=== PATIENT | female | born 1935 | race Caucasian/White ===

== ENCOUNTER 2018-04-25 18:20 | Inpatient (IN) | payer OTHER, BC ==
[2018-04-22 21:45] VITALS: BP 176/88
[~2018-04-25] VITALS: Ht 165.1 cm; Wt 58.1 kg
[2018-04-25 18:22] VITALS: BP 172/89
[2018-04-25 18:56] LABS: URINE BILIRUBIN NEGATIVE (Negative); URINE BLOOD 1+ (Negative); URINE CLARITY CLEAR; URINE COLOR YELLOW; URINE GLUCOSE-RANDOM* NEGATIVE (Negative); URINE KETONES NEGATIVE (Negative); URINE LEUKOCYTES-REFLEX NEGATIVE (Negative); URINE NITRITE-REFLEX NEGATIVE (Negative); URINE PROTEIN (DIPSTICK) NEGATIVE (Negative); URINE SPECIFIC GRAVITY 1.025 (1.005-1.035); URINE UROBILINOGEN 0.2 E.U./dl (0.2-1.0)
[2018-04-25 19:12] LABS: BACTERIA-REFLEX None Seen /HPF (None Seen); CRYSTALS None Seen /LPF (None Seen); HYALINE CASTS 0-3 Few /LPF (None Seen); MUCUS >6 Heavy strn/LPF (None Seen); SQUAMOUS 0-3 Few /LPF (0-3); URINE RBC 0-2 Rare /HPF (0-2); URINE WBC-REFLEX 0-5 Rare /HPF (0-5)
[2018-04-25 19:14] LABS: AMP/METHAMP Negative (Negative); BARBITURATES Negative (Negative); BENZODIAZEPINES Negative (Negative); COCAINE Negative (Negative); METHADONE Negative (Negative); OPIATES Negative (Negative); PCP Negative (Negative)
[2018-04-25] MEDS ORDERED: TRAZODONE HCL50 MG PO (19:49)
[2018-04-25] MEDS ORDERED: CELEXA20 MG PO (19:49)
[2018-04-25 19:51] LABS: HEMATOCRIT 35.5 % (37.0-47.0); HEMOGLOBIN 12.2 gm/dL (12.0-15.0); MCH 32.4 pg (26.0-34.0); MCHC 34.3 g/dL (28.0-37.0); MCV 94.5 fL (80.0-100.0); RBC 3.76 mil/uL (4.20-5.00); RDW 13.1 % (10.5-14.5)
[2018-04-25 19:59] LABS: CREATININE 0.7 mg/dL (0.6-1.0); POTASSIUM 3.3 mmol/L (3.5-5.1)
[2018-04-25] MEDS ORDERED: NAMENDA 10 MG T10 MG PO (19:59)
[2018-04-25] MEDS ORDERED: PROLIA60 MG/1 ML SUBQ (20:00)
[2018-04-25] MEDS ORDERED: ARICEPT 5 MG TAB5 MG PO (20:01)
[2018-04-25] MEDS ORDERED: COLACE100 MG PO (20:01)
[2018-04-25] MEDS ORDERED: IBUPROFEN 200200 M1 PO (20:02)
[2018-04-25 21:23] VITALS: BP 172/77
[2018-04-26] VITALS (7 sets, daily range): BP systolic 156–179; BP diastolic 88–100
[2018-04-26] MEDS ORDERED: TRAZODONE HCL50 MG (00:04)
--- NOTE | 2018-04-26 00:51 | NUR ---
82 YEAR OLD FEMALE ADMITTED FROM [facility] WITH REPORTED INCREASING DEPRESSIVE SYMPTOMS,POOR SLEEP,DECREASED APPETITE AND RECENT SUICIDAL COMMENTS AND GESTURES. PER DOCUMENTATION SENT FROM [place] PT HAD AN INCIDENT ON 04/22 PM WHERE SHE HAD A PLASTIC FORK TO HER FACE AND WAS SAYING "I AM GOING TO END IT ALL" AT THIS TIME DID INLICT SOME SUPERFICIAL SCRATCHES TO RIGHT CHEEK THAT ARE NOTED TO BE CLEAN AND DRY WITHOUT REDNESS OR SWELLING OBSERVED DURING ASSESSMENT. SOME FAINT YELLOWISH BRUISING NOTED TO RIGHT CHEEK/ORBITAL AREA OBSERVED. PT WAS ALSO REPORTED TO HAVE VERBALIZED TO HER DAUGHTER THAT SHE HAD A PLAN TO BREAK A GLASS AND USE IT TO CUT HER THROAT-THIS COMMENT WAS MADE 04/24 PM PER DOCUMENTATION AND DID NOT ACT UPON THIS THREAT. INITALLY UPON ARRIVING TO UNIT WAS SCREAMING,RESSITVE WITH TRANSFER FROM CART TO BED AND APPEARS SUSPICIOUS OF STAFF STATING "DO YOU HAVE A NEEDLE,ARE YOU GOING TO PUT ME TO SLEEP-GO AHEAD AND DO IT" AFTER INITAL AGITATION WITH TRANSFER TO BED REFUSED TO ANSWER QUESTIONS AND TURNED HEAD AWAY FROM THIS RN EYES TIGHTLY CLOSED-. PLACED IN ROOM NEXT TO NURSES STATION FOR -CALL TOLENTINO AND WATER PROVIDED-DID TRANSFER TO BSC WITH SBA X1
--- NOTE | 2018-04-26 10:47 | NUR ---
ASSUMED PT CARE AT 0700 REPORT RECEIVED FROM NURSE. PT IS AOX4 VS TAKEN. SBP 179. APRESOLINE ORDERED AND GIVEN. MORNINIG MEDICINE GIVEN. PT COMPLAINS OF STRAINING WHILE DEFACATING AND CONSTIPATION. BISACODYL ORDERED AND GIVEN BY THIS NURSE. PT IS UP AD LELIA AMBULATES IN HALLWAY AND ATE BREAKFAST. NO AGGRESSIVE BEHAVIOR NOTED . JUST IMPATIENCE AND MOOD SWING FROM HAPPINESS TO SADNESS. PICTURE OF RIGHT CHEECK BONE ABRAISON TAKEN AND PLACED IN CHART. SEE CHART. PT IN NOW RESTING IN BED. WILL CONTINUE TO MONITOR
--- NOTE | 2018-04-26 16:13 | NUR ---
pt becomes anxious towards the evening. pt took a shower this evening. ate all meals. constipated. nurse brought that concern to hospitalist VP STRATEGIC PLANNING who did a CONCHIS and KUB. result normal. will continue with PRN suad softeners
--- NOTE | 2018-04-26 16:48 | EKG ---
[address] [place] [address] ELECTROCARDIOGRAM REPORT Name: TYLER HOOKER Room #: [facility] ADM IN M.R.#: [id number] ������������������ Admission: 04/25/18 ������������������ Attend Phys: Joaquin Modi DO Discharge: ������������������ Date of : 39 Report #: [id number] ����������������������������������������������������������������� [id number] THIS REPORT FOR: //name// [facility] Test Date: 2018-04-26 Test Time: 08:55:38 Pat Name: TYLER HOOKER Department: Room: [facility] Gender: F Qa Manager: CHARANJIT : 1935 Requested By: Joaquin Modi Order Number: [id number] MD: Min Snyder Measurements Intervals [place] Rate: 72 P: 76 MN: 146 QRS: -10 QRSD: 106 T: 38 QT: 391 QTc: 428 Interpretive Statements Sinus rhythm RSR' in V1 or V2, right VCD or RVH No previous ECG available for comparison Electronically Signed On 04-26-2018 16:48:11 TRAFFIC CHECKER by Min Snyder [email or web address] ��������������������������������������������� <ELECTRONICALLY SIGNED> ���������������������������������������� By: Min Snyder MD ��������������������������������������������� 04/26/18 1648 4 Min Snyder MD /ANDI
--- NOTE | 2018-04-26 20:30 | NUR ---
ASSUMED CARE @19:15. IN DAY ROOM STANDING AND AMBULATING. AMBULAING IN HALLWAY SAYING THAT SHE IS LOOKIN FOR THE OUTSIDE. REDIRECTED. DENIES SI AND FL AT THIS TIME. A&O X 2.
--- NOTE | 2018-04-26 21:49 | H ---
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 HISTORY OF PRESENT ILLNESS: This is an 82-year-old female, , who has been residing at the [facility] for 3 weeks. Previously, she lived at home with her . Her has advancing pulmonary fibrosis and need to be hospitalized, is no longer able to be cared for her. I met with the patient this morning on the unit, she was a grossly poor historian. She was guarded. She was paranoid. She was unable to give me a reliable history. I spoke with her reported DPOA and daughter, Reanna Conklin at [phone]. She reports that the patient has had dementia for 16-year history. 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 Medica History: The patient otherwise has a significant medical history. Surgical Hx denied Seizure History: denied Family history is noted to be an older brother, older sister with Alzheimer's related dementia, 1 . Social History:The patient traveled to [place] about 10 years ago, otherwise no foreign travel. She has 4 children. She has developed yazidism. Educational History She went to college later in life. [facility] [address] [place] [address] HISTORY AND PHYSICAL Name: TYLER HOOKER Room #: 520B-B ADM IN M.R.#: [id number] Admission: 04/25/18 ������������������ Attend Phys: Joaquin Modi, Discharge: ������������������ Date of : 39 Report #: [id number] Home Medications: Significant information from the Memory Care Facility, her regimen there was acetaminophen 1000 mg twice a day, citalopram 20 mg daily, diclofenac gel, donepezil 23 mg daily, amantadine 23 mg extended release, miconazole 2% cream, trazodone 50 mg at bedtime, B12 1000 mcg oral daily and several PRNs. Interestingly, one of her nasal medications was intranasal ipratropium. The patient was noted at the nursing facility as having made a suicidal ideation about a week to 10 days ago. She also around that time right before or right after had a brief statement at her Medical Center, it sounds like for delirium. The instance that brought her here on the was she stated she was going to break glass and cut her neck with it. She has been on private duty one-to-one supervision due to comments made over the weekend. She was started on trazodone 25 mg p.o. at bedtime. On 04/22/2018, Tyler tried to poke her face on the right side, she stated "I want to end it." So nonetheless, we have a good 1-week history of suicidal gesture. Workup from the ER is as follows: H and H 12.2 and 35.5, white count 5.0, platelet count 237, potassium 3.3, carbon dioxide 33, anion gap is 6. Acetaminophen level is less than 2. Serum alcohol less than 10. Urinalysis negative except 1+ blood, 0-3 hyaline casts, greater than 6 mucus. Other laboratories were not done. No imaging done. Vital signs today: Temperature 36.7, heart rate 77, respirations 17, BP 179/100. Physical exam performed by hospitalists, so I will defer to them. Reliable psychiatric review of systems is not possible given the degree of the patient's confusion and dementia. MEDICATIONS IN THE HOSPITAL: Trazodone 50 mg at bedtime; Risperdal 0.25 mg b.i.d.; Trileptal 150 mg twice a day; docusate 100 mg p.o. b.i.d.; hydralazine 10 mg q.6 p.r.n. for systolic BP greater than 170; one rectal suppository, the nurse reported that she has a small stenotic rectum, I have asked the hospitalist to examine further; donepezil discontinued at this time, vitamin B12 oral continue 1000 mcg daily, Tylenol 1000 mg b.i.d. continued. MENTAL STATUS EXAM: Well-developed, disheveled, ill appearing female appearing at least stated age. Attention limited. Concentration impaired. Speech normal rate with normal tone. Thought process linear and goal directed. Thought content is not being harmed. Some psychomotor agitation. No psychomotor retardation. Denied auditory, visual, or tactile hallucination. Denied suicidal intent and plan. Denied hopelessness and helplessness. Denied homicidal intent and plan. Memory noted to be impaired. Insight limited. Judgment impaired. Fund of knowledge well below average. ASSESSMENT: An 82-year-old female admitted with dementia with [address] [address] HISTORY AND PHYSICAL Name: TYLER HOOKER Room #: 520B-B ADM IN M.R.#: [id number] Admission: 04/25/18 ������������������ Attend Phys: Joaquin Modi DO Discharge: ������������������ Date of : 39 Report #: [id number] behavioral disturbance picture. PLAN: Evaluate, stabilize, obtain collateral. Her citalopram has been stopped. We will start her on Risperdal 0.25 mg b.i.d. for delirium and ____ 150 mg twice a day for mood stabilization. I told the daughter we will plan a family meeting either late this week or early next week. ��������������������������������������������� <ELECTRONICALLY SIGNED> ���������������������������������������� By: Joaquin Modi DO ��������������������������������������������� 04/26/18 2149 1400 [id number] Joaquin Modi DO /nt
--- NOTE | 2018-04-27 03:20 | NUR ---
EARLIER IN THE SHIFT, STAFF ASKED THIS CONTROL SYSTEMS DESIGNER TO CHECK OUT THE PATIENT, WHEN SHE HAD HEARD A NOISE. THIS CONTROL SYSTEMS DESIGNER WALKED INTO THE PATIENT'S ROOM AND FOUND THE PATIENT ON THE FLOOR SITTING ON HER BOTTOM. THE PATIENT HAD STATED THAT SHE WANTED TO PEE. VITAL SIGNS WERE TAKEN AND THE PATIENT WAS ASSISTED BACK TO THE BED. THE NURSE PRACTIONER WILL BE NOTIFIED THIS AM, WELL THE PATIENT'S FAMILY. THE ZINC PLATING MACHINE OPERATOR WAS NOTIFIED.
--- NOTE | 2018-04-27 06:32 | NUR ---
IN BED ALL NOC AFTER RECOVERING FROM FALL. NO INJURIES NOTED. LEFT MSG ON POLICE SERVICE TECHNICIAN ANSWERING MACHINE. DAUGHTER BRENDA CALLED AND ADVISED OF NON-INJURY FALL. SLEPT 5 HOURS.
[2018-04-27 07:20] VITALS: BP 157/93
--- NOTE | 2018-04-27 11:22 | NUR ---
ASSUMED PATIENT CARE AT 0700. PATIENT UP IN LARGE GROUP ROOM AT TABLE. ATE SMALL AMOUNT OF BREAKFAST. DENIES S.I. DENIES PAIN. HAS NOT HAD ANY FURTHER INCIDENTS OF FALLS, STAND-BY ASSIST WITH GAIT BELT. BLOOD PRESSURE ELEVATED, 157/93. CONTINUE TO MONITOR.
[2018-04-27 12:09] VITALS: BP 157/93
--- NOTE | 2018-04-27 13:15 | NUR ---
PATIENT REFUSED LUNCH; BECAME VERY ANXIOUS, REFUSED TO SIT DOWN AT TABLE, CONTINUED TO TRY TO WALK WITHOUT WALKER OR ASSISTANCE. THIS NURSE AND AMMUNITION SPECIALIST ASSISTED PATIENT TO HER ROOM, ONE EACH SIDE OF PATIENT, HOLDING PATIENT'S ARMS TO HOLD HER UP. PATIENT KEPT TRYING TO LEAN OVER, IF TRYING TO FALL ON THE FLOOR. GAIT BELT APPLIED TO PATIENT, SAFELY ASSISTED PATIENT TO HER BED. LAID DOWN AND NAPPED FOR ABOUT AN HOUR; NOW UP IN LARGE GROUP WITH ASSIST OF ONE, PER ASSIST OF AMMUNITION SPECIALIST. CONTINUE TO MONITOR.
--- NOTE | 2018-04-27 14:43 | NUR ---
Assess due to notification of low bright score. Admit with SI. Hx advanced alzheimers, depression. Had not been eating few days prior to admit but starting to eat while here. Unknown wt hx. BMI is 21.3-appropriate. On B12 supplementation. low nutrition risk
--- NOTE | 2018-04-27 18:19 | NUR ---
PATIENT UP MOST OF DAY; IMPULSIVE; NOTED PREVIOUSLY, SUDDENLY STANDS UP AND TRIES TO WALK WITHOUT ASSISTANCE. AT 1815, PATIENT GOT UP FROM [facility] IN LARGE GROUP ROOM, REFUSED TO LET NURSE HELP HER WALK WITH WALKER. BECAME TEARFUL AND ANGRY, STATED THAT SHE WANTED TO SEE HER SISTERS. ALSO, SHE IS TIRED OF NOT SEEING ANYONE. THEN BEGAN WALKING AT AN ALMOST RUNNING PACE. NURSE CALLED FOR ASSISTANCE. DIONICIO TONY, WAS ABLE TO WALK PATIENT TO HER BED BY HOLDING BOTH HANDS. PATIENT CURRENTLY LYING QUIETLY IN BED WITH EYES CLOSED.
--- NOTE | 2018-04-27 21:59 | NUR ---
ASSUMED CARE @ 19:15. SITTING IN DAY ROOM. HAS WALKER TODAY TO USE FOR SAFETY. IMPULSIVE, STANDING UP QUICKLY AND RESISTING ASSISTANCE FROM STAFF. FIGHTING GAIT BELT, WALKER AND X2 TO X3 ASSIST. TRIES TO AMBULATE @ A RUNNING PACE IMPULSIVELY. MEDICATIONS GIVEN WITH PUDDING AND TO HELP WITH SWALLOWING MEDICATION.
--- NOTE | 2018-04-28 06:29 | NUR ---
IN BED ALL NIGHT ONCE ASLEEP, STAYED ASLEEP. SLEPT 6 HOURS.
[2018-04-28 07:45] VITALS: BP 136/80
--- NOTE | 2018-04-28 12:58 | NUR ---
ASSUMED CARE AT 0715 THIS MORNING. PT. CONTINUES TO BE VERY CONFUSED. SHE IS UP WALKING AROUND, OFTEN WITHOUT HER WALKER. SHE IS NOTED TO GET TIRED AND SIT DOWN WHERE SHE STANDS (IN HER ROOM, THE [place], WHEREVER SHE IS). SHE NEEDS CONTSTANT REMINDER TO TAKE HER WALKER WITH HER WHEN SHE IS AMBULATING. SHE IS TEARFUL AT TIMES LOOKING FOR HER FAMILY. SHE WILL ONLY REST FOR VERY SHORT PERIODS OF TIME IN HER ROOM THEN SHE WANTS TO GET UP AND WALK AGAIN. STAFF GIVES HER FLUIDS OFTEN, BUT UNABLE TO GET PT. TO CONSUME MUCH. WAS TAKEN TO THE BATHROOM ABOUT EVERY 2 OR 3 HOURS TODAY. BED WAS CHANGED. PT. WANTED TO PUT ON HER OWN CLOTHES, BUT THERE ARE NONE HERE FOR HER. SHE DOES ATTEMPT TO FED HERSELF BUT NEEDS MUCH HELP FROM STAFF TO EAT. SHE WILL TAKE HER PILLS BUT TRIES TO CHEW THEM. EVEN WHEN PILLS ARE GIVEN IN PUDDING SHE WILL SUCK OFF THE PUDDING AND THEN AGAIN TRY TO CHEW THE PILLS. SHE IS NOTED TO BE DROOLING QUITE A BIT TODAY. STAFF SUPPLIES HER WITH KLEENIX FOR THIS.
[2018-04-28 13:09] VITALS: BP 136/80
--- NOTE | 2018-04-28 15:45 | NUR ---
ROSAMARIA met with Reanna pt daughter (DPOA) to discuss her medication, and discharge plan. Dr. Modi stated that he d/c three prescriptions, and add Halidol. Dr. Modi stated that there will need to be another meeting to discuss the diagnosis with the whole family. Dr. modi stated that pt is having psychosis, and delirium and she will not be ready for discharge until mid next week. ROSAMARIA will follow-up with pt upon discharge.
[2018-04-28 18:28] LABS: URINE BILIRUBIN NEGATIVE (Negative); URINE BLOOD NEGATIVE (Negative); URINE CLARITY CLEAR; URINE COLOR YELLOW; URINE GLUCOSE-RANDOM* NEGATIVE (Negative); URINE KETONES NEGATIVE (Negative); URINE LEUKOCYTES-REFLEX NEGATIVE (Negative); URINE NITRITE-REFLEX NEGATIVE (Negative); URINE PROTEIN (DIPSTICK) NEGATIVE (Negative); URINE SPECIFIC GRAVITY >= 1.030 (1.005-1.035); URINE UROBILINOGEN 0.2 E.U./dl (0.2-1.0)
[2018-04-28 19:26] VITALS: BP 147/77
[2018-04-29 01:06] VITALS: BP 147/77
--- NOTE | 2018-04-29 04:03 | NUR ---
PT CONTINUES TO BE RESTLESS AND OCCASIONALLY COMBATIVE. RESPONDS TO GENTLE REASSURANCE THAT SHE IS SAFE AND NO ONE WILL HURT HER. PERIODICALLY ATTEMPTS TO GET UP ON HER OWN. SPENT TIME IN DAY AREA WITH STAFF. HAS LITTLE UNDERSTANDING OF CURRENT CIRCUMSTANCES. OCCASIONALLY MAKES STATMENTS LIKE"WE'RE ALL GOING TO ". UP AND DOWN X 2 DURING THE NIGHT. USES BSC.
[2018-04-29 06:14] LABS: CREATININE 0.6 mg/dL (0.6-1.0); POTASSIUM 3.1 mmol/L (3.5-5.1)
[2018-04-29 07:15] VITALS: BP 158/93
--- NOTE | 2018-04-29 09:02 | NUR ---
ASSUMED PATIENT CARE AT 0700. PATIENT UP IN D.R. AT THAT TIME, QUIET AT THAT TIME. HOWEVER, A FEW MINUTES LATER, PATIENT BECAME ANXIOUS, EVIDENCED BY GETTING UP FROM TABLE AND BEGINNING TO WALK BY HERSELF. NURSING STAFF INTERCEDED AND ASSISTED PATIENT TO ROOM TO USE BATHROOM. BOBBIN STRIPPER REPORTED THAT PATIENT STRAINED TO HAVE A HARD, FORMED B.M. GIVEN PRUNE JUICE FOR BREAKFAST. WILL REQUEST LAXATIVE ORDER WHEN DR. REHMAN ARRIVES. CONTINUE TO MONITOR.
[2018-04-29 11:56] LABS: MAGNESIUM 1.7 mg/dL (1.8-2.4)
[2018-04-29 18:29] VITALS: BP 158/93
[2018-04-29 20:36] VITALS: BP 154/77
--- NOTE | 2018-04-29 22:57 | NUR ---
REFUSED 2100 MEDS. IN DAY ROOM, SITTING AT TABLE IN A CHAIR. ANXIETY PROMTS PATIENT TO STAND AND WALK, AIDE REQUESTS PT SIT AND SHE DOES SO RESISTANTLY. DENIES HALLUCINAIONS, SI AND HI. ACCEPTED MEDS WITH APPLE JUICE AND ENCOURAGEMENT. AMBULATED TO BEDROOM WITH X1 ASSIST AND GAIT BELT. LYING IN BED, EYES CLOSED, RESPIRATIONS EVEN AND UNLABORED.
[2018-04-29 23:00] VITALS: BP 154/77
--- NOTE | 2018-04-30 06:29 | NUR ---
SLEPT IN BED 8 HOURS.
--- NOTE | 2018-04-30 10:17 | NUR ---
ASSUMED PATIENT CARE AT 0700. AT ABOUT 0730, PATIENT UP IN BEDROOM WITH AQUARIUM SPECIALIST; HAD LARGE BOWEL MOVEMENT, PARTIALLY INCONTINENT. ATE ABOUT 25% OF BREAKFAST, DRANK ALL OF O.J. IS CURRENTLY IN BED, NAPPING. CONTINUE TO MONITOR.
[2018-04-30 14:57] VITALS: BP 142/73
--- NOTE | 2018-04-30 17:15 | NUR ---
ASSUMED CARE AT 0715 THIS MORNING. PT. IN BED. UP FOR BREAKFAST THEM RETURNED TO BED AND RESTED UNTIL ABOUT 0900. SHE HAS BEEN UP MOST OF THE DAY SINCE THAT TIME, OFTEN WALKING THE HALLS. STAFF WITH PATIENT SHE AMBULATES. SHE WAS NOT AGITATED TODAY AND WAS QUIETER. SHE ATE AT LEAST 1/2 OF HER MEALS. SHE HAD A BM TODAY NEEDED CLEANED UP BY STAFF. SHE CONTINUES TO UTILIZE A WALKER PART OF THE TIME SHE AMBULATES. SHE HAS NOT BEEN UPSET ABOUT USING THIS. HAS TAKEN HER MEDS WITHOUT PROBLEMS TODAY.
--- NOTE | 2018-04-30 17:56 | NUR ---
PATIENT CONTINUES TO BECOME AGITATED AND IMPULSIVE. ALSO DOES NOT SIT STILL FOR MORE THAN SHORT PERIODS OF TIME. ATE OVER 50% OF LUNCH AND DINNER. NOW SITTING ON SOFA, SPEAKING TO RNRICKEY.
[2018-04-30 20:04] VITALS: BP 153/88
[2018-05-01 01:10] VITALS: BP 153/88
--- NOTE | 2018-05-01 04:09 | NUR ---
PT MUCH MORE RELAXED THIS PM. OUT IN DAY AREA EARLY IN SHIFT. REQUESTED TO GO TO BED. MORE ABLE TO EXPRESS NEEDS TO STAFF. SLEPT INTERMITTANTLY. UP TO BS COMMODE X2, BUT ALSO INCONTINANT X1. LINEN CHANGED. REMAINS WEAK AND REQUIRES ASSIST WITH TOILETING AND AMBULATION WITH WALKER. TOOK HS MEDS W/O PROBLEM.
[2018-05-01 07:38] VITALS: BP 176/92
--- NOTE | 2018-05-01 08:45 | NUR ---
CLIENT UP AT THIS TIME USING BSC, BRIEF IS DRY. PT VOIDED, BUT NO BM. CLIENT UP WALKING WITH WALKER, NEEDS ENFORECMENT TO USE WALKER. DIDN'T WANT NURSE TO LISTEN TO ABD. PINCHING NURSES HANDS WITH STETHESCOPE. ABLE TO AG EQUIPMENT FIELD SERVICE TECHNICIAN FINGER FOODS.
[2018-05-01 11:08] VITALS: BP 176/92
--- NOTE | 2018-05-01 12:00 | NUR ---
CLIENT UP AT TIMES STATING SHE HAS TO GO SOMEWHERE, ASK WHERE, CLIENT UNABLE TO SAY. WALKS WITH WALKER AND STAND-BY ASSIST. GAIT STEADY, AFRAID OF FALLING.
--- NOTE | 2018-05-01 17:00 | NUR ---
FAMILY VISITING, HELPING CLIENT WITH DINNER. CLIENT NOT ABLE TO ATTEND GROUP AND STAY FOCUSED, GETS UP FREQUENTLY WHEN SITTING IN DINNING ROOM.
[2018-05-02 00:50] VITALS: BP 149/89
[2018-05-02 01:10] VITALS: BP 149/89
--- NOTE | 2018-05-02 04:26 | NUR ---
PT OUT IN DAY AREA EARLY IN SHIFT. EVENING SNACK OF YOGURT. UP WALKING WITH ASSIST. ENCOURAGED TO USE WALKER, BUT WALKING ON HER OWN. ESCORTED TO BED. TOOK HS MEDS W/O INCIDENT. SLEPT INTERMITTANTLY. UP TO BSC X2 DURING THE NIGHT. NO INCONTINENCE NOTED. NO BM.
[2018-05-02 07:30] VITALS: BP 123/76
[2018-05-02 08:00] VITALS: BP 149/89
--- NOTE | 2018-05-02 11:04 | NUR ---
assumed pt care report received from nurse pt is aox3 no complaint of pain at this time. pt is sitting in the activity room. ate breakfast with help. walked in hallway with walker and assistance from staff. pt seems to be sedated. slouched posture, slow movement noticed. pt took shower this am. but pt is well behaving at this time. pt daughter Reanna came and visit today at 1100. pt is now in room communicating with daughter. will continue to monitor
--- NOTE | 2018-05-02 18:20 | NUR ---
pt spent a day free of falls. pt assisted to walk with walker. pt is now resting in bed.
[2018-05-02 20:03] VITALS: BP 152/98
--- NOTE | 2018-05-02 23:23 | NUR ---
Recieved report and assumed care @19:15. [id number] ambulated to bedroom and lay down in bed. fall mat on the floor and bed alarm set. 2100 medications provided in applesauce. Resumed sleep, alarm on and fall mat beside bed.
--- NOTE | 2018-05-03 06:48 | NUR ---
SLEPT 8.4 HOURS, INCONTINENT OF BLADDER X2 IN NOC.
[2018-05-03 07:45] VITALS: BP 157/88
--- NOTE | 2018-05-03 09:42 | NUR ---
ASSUMED PATIENT CARE AT 0730 A.M. PATIENT IS LETHARGIC TODAY, ATE PARTIAL BREAKFAST WITH STAFF ASSISTANCE. COMPLIANT WITH MEDICATION WITH NURSE ASSISTANCE. CONTINUE TO MONITOR.
[2018-05-03 11:07] VITALS: BP 157/88
--- NOTE | 2018-05-03 17:06 | NUR ---
PATIENT HAS AMBULATED SEVERAL TIMES TODAY, ASSISTED BY STAFF. HAS BEEN WALKING WITHOUT THE AIDE OF WALKER, SINCE SHE AMBULATES EASIER WITHOUT WALKER. EATS 50-75% OF MEALS, WITH ASSISTANCE OF STAFF. BECAME FRUSTRATED AND ANGRY OCCASSIONALLY WITH STAFF; REDIRECTED TO BECOME CALM.
[2018-05-03 19:26] VITALS: BP 125/70
--- NOTE | 2018-05-03 23:00 | NUR ---
ASSUMED CARE @ 1915. SITTING IN DAYROOM. X1 ASSIST TO AMBULATE WITH GAIT BELT. DENIES SI. CONFUSION AND DEPRESSION NOTED. CALM AND COMPLIANT WITH MEDICATIONS @ 2100. WENT TO BED @ 22:00 AND SLEEPING WELL. WILL CONTINUE TO MONITOR.
--- NOTE | 2018-05-04 06:06 | NUR ---
SLET 7 HOURS. AMBULATED TO THE DAY ROOM WITH X2 ASSIST AND A GAIT BELT.
--- NOTE | 2018-05-04 10:29 | NUR ---
Nutrition: pt seen per followup. Admit with SI, hx advanced alzheimers, depression. Poor po prior to admit but has been eating well here. 100% of meals documented yesterday and 50-100% of meals prior. No new weight but initial weight WNL for BMI. Continues on B12 supplementation. Nsg report pt prefers finger foods, will add to diet order but staff also plans to assist with ordering meals as needed. Low nutrition risk.
--- NOTE | 2018-05-04 10:42 | NUR ---
ASSUMED PATIENT CARE AT 0715 A.M. PATIENT UP IN ROOM, RETIREMENT PLAN COUNSELOR PROVIDING TOILETING ASSISTANCE. ATE WELL FOR BREAKFAST; GIVEN A SHOWER, TOILETED ONCE SINCE BREAKFAST. CURRENTLY WORKING WITH P.T., AMBULATING IN THE HALLWAY. DROWSY MOOD, CALM BEHAVIOR, BLUNTED AFFECT. MEDICATION APPARENTLY EFFECTIVE, EVIDENCED BY CALM BEHAVIOR.
[2018-05-04 11:42] VITALS: BP 154/60; BP 154/670
--- NOTE | 2018-05-04 13:05 | NUR ---
Dr. Modi was to have qa family meeting with Marleny's daughter. Marleny's daughter did not make the meeting, due to she did not know there was a family meeting today, according to Dr. Modi. When I meet with Marleny's daughter earlier this week she requested that I be in the meeting with her and Dr. Modi on Wednesday. Dr. Modi called [facility] to discuss a discharge for Marleny on 05/05/18. [facility] will accept Marleny back to the memory care unit. Dr. Modi will fax the records to [facility].
[2018-05-04 16:08] VITALS: BP 154/60
[2018-05-04 19:39] VITALS: BP 142/86
--- NOTE | 2018-05-04 21:05 | NUR ---
ASSUMED CARE OF THE PT AT 1945PM. THE PT WAS SITTING IN THE DAYROOM TAKING A SNACK, EATING IT WITH A SPOON. TOOK HER MEDICATIONS IN APPLESAUCE WITHOUT ANY DIFFICULTY. DRANK HER WATER WITHOUT ANY DIFFICULTY. HEART RATE REGULAR, LUNGS CLEAR BILATERALLY, RESP., EVEN, AND UNLABORED. +BS HEARD IN ALL 4 QUADRANTS. ABD SOFT ET NONTENDOR. +PP BILATERALLY. REMAINS ON 12 MINUTE CHECKS FOR HER SAFETY.
--- NOTE | 2018-05-05 06:13 | NUR ---
THE PT SLEPT 9 HOURS LAST NIGHT.
[2018-05-05 07:47] VITALS: BP 126/74
[2018-05-05] MEDS ORDERED: B-12500 MCG PO (09:51)
[2018-05-05] MEDS ORDERED: BISACODYL SUPP10 MG RECTAL (09:52)
[2018-05-05] MEDS ORDERED: HALOPERIDOL2 MG/1 ML PO (09:52)
[2018-05-05] MEDS ORDERED: TYLENOL EXTRA500 MG PO (09:53)
[2018-05-05] MEDS ORDERED: VOLTAREN GEL 1100 G1 TOP (09:54)
--- NOTE | 2018-05-05 10:06 | NUR ---
Patient Name: TYLER HOOKER Admission Date: 04/25/18 DISCHARGE PLAN: Pt will be discharging to [facility] memory care unit. Care Assessment: Pt was assessed by Dr. Modi that pt was having psychosis, delirium. Pt medication was adjusted, and feel that pt will appropriate for discharge. Level II Assessment: None Transportation:Pt will be transported in her daughter vehicle. Special Instructions/Notes: Pt will return back to an memory care unit through [facility]. DISCHARGE TO FACILITY: Memory Care unit Facility: [facility] Fax: Address: [address] [place] [address] Contact Name: Sana PCP: KEVIN Psychiatrist: KEVIN
[2018-05-05] MEDS ORDERED: SEROQUEL 25 MG25 M1 PO (10:43)
--- NOTE | 2018-05-05 11:25 | NUR ---
PATIENT DISCHARGED 11:10 TO [facility] WITH DAUGHTERS. PATIENT DPOA SIGNED DISCHARGE PAPERS AND REVIEWED DOCUMENTION AND ORDERS. PATIENT ASSISTED INTO VEHICLE AND SECURED. CALLED AND FAXED PAPERWORK TO FACILITY. PATIENT ALERT AND STABLE - ALL BELONGINGS CHECKED OUT AND GIVEN TO FAMILY AT DISCHARGE.
[2018-05-05 11:42] VITALS: BP 126/74
--- NOTE | 2018-05-05 14:30 | NUR ---
STAFF CALLED [facility] THREE TIMES TRYING TO CONTACT WITH NURSE TO GIVE REPORT AFTER DISCHARGE. TWICE DISCONNECTED AND THIRD TIME VOICEMAIL STATED UNABLE TO LEAVE MESSAGE DUE TO NON ACTIVATION.
--- NOTE | 2018-05-07 13:54 | D ---
[facility] [place] [address] DISCHARGE SUMMARY Name: TYLER HOOKER Room #: 520B-B DIS IN M.R.#: [id number] Admission: 04/25/18 ������������������ Attend Phys: Joaquin Modi DO Discharge: 05/05/18 ������������������ Date of : 39 Report #: [id number] THIS REPORT FOR: //name// CC: Joaquin Modi [facility] DATE OF SERVICE: 05/05/2018 ATTENDING PHYSICIAN: Joaquin Modi DO LINE MANAGER: Joaquin Webb MD DISCHARGE DIAGNOSES: Major neurocognitive disorder, likely due to Alzheimer disease with behavioral disturbance, advanced; delirium secondary to multiple etiologies, resolved; medical comorbidities include debility, constipation, hypertension, hypokalemia, which was replaced. DISCHARGE DIET: Regular with assisted feedings as necessary. DISCHARGE MEDICATIONS: Are as follows: Diclofenac gel 1% 100 one pump topical b.i.d., acetaminophen 1000 mg p.o. b.i.d. for osteoarthritis, Haldol 1 mg p.o. b.i.d., this has been given in an Intensol form, but let me give it in pill form; bisacodyl suppository 10 mg twice per day p.r.n. constipation, cyanocobalamin 1000 mcg daily for supplementation. A prescription was given for Seroquel 25 mg p.o. q. 8 p.r.n. for anxiety or agitation, Prolia 60 mg subcutaneously for hyperprolactinemia, docusate sodium 100 mg p.o. b.i.d. for constipation. REASON FOR ADMISSION: Is as follows: An 82-year-old female presented to the ED via EMS for suicidal ideation. She had allegedly threatened to kill herself in the [facility]. She had taken a plastic fork and tried to stab herself in [place] with it stating that "I am going to end up." HOSPITAL COURSE: The patient was admitted to the Geriatric Psychiatry Unit. Initially, she was started on a Depakote, olanzapine regimen; however, this was not efficacious and she is quite sedated. I elected to discontinue the unnecessary medications such as her cognitive enhancers, went with a Haldol regimen 2.5 mg twice per day. This was tapered down to 1 mg twice per day, the patient improved. She became ambulatory again with contact guard assist, was able to interact with others on the unit as well as her daughters. Family meeting was held. The nature of an advanced dementia was discussed including the increased likelihood of delirium. LABORATORY DATA: This admission are as follows: CBC: H and H and 12.2 and 35.5, white count 5.0, platelet count 237. Electrolytes: Sodium 139, potassium [address] [id number] DISCHARGE SUMMARY Name: TYLER HOOKER Room #: 520B-B [facility] IN M.R.#: [id number] Admission: 04/25/18 ������������������ Attend Phys: Joaquin Modi DO Discharge: 05/05/18 ������������������ Date of : 39 Report #: [id number] 3.1, chloride 99, bicarbonate 31, anion gap 9, BUN 14, creatinine 0.6, estimated GFR 96, glucose 92, calcium 9.0, magnesium 1.7 on 04/29/2018. Toxicology, she was negative for alcohol, negative for acetaminophen. UDS was negative. Urinalysis was negative for infection. PHYSICAL EXAMINATION: VITAL SIGNS: On the day of discharge, temperature 36.4, pulse 74, respirations 18, BP 126/74. MUSCULOSKELETAL: Ambulatory with walker and contact guard assist. GENERAL: This is a well-developed, frail appearing female, appearing stated age. Attention intact. Concentration limited. Speech normal rate, normal tone. Thought process, linear and limited. Thought content, somehow restored. No psychomotor retardation. No psychomotor agitation. MOOD AND AFFECT: Congruent, but constricted. Denied auditory, visual or tactile hallucinations. Denied suicidal intent or plan. Denied hopelessness or helplessness. Denied homicidal intent or plan. Memory noted to be impaired. Insight limited. Judgment limited. Fund of knowledge below average. Prognosis for this patient is guarded due to already being placed in memory care, neurodegenerative disorder. ��������������������������������������������� <ELECTRONICALLY SIGNED> ���������������������������������������� By: Joaquin Modi DO ��������������������������������������������� 05/07/18 [id number] 1814 Joaquin Modi, /nt
== END 2018-05-05 11:05 | DRG 57 ==
LOC: ER 18:20 → SBH 20:55
PROVIDERS: Emergency Medicine; Internal Medicine; ADMIT Psychiatry & Neurology Psychiatry
DX: G30.9 Alzheimer's disease, unspecified (principal); F02.81 Dementia in other diseases classified elsewhere, unspecified severity, with behavioral disturbance; F01.51 Vascular dementia, unspecified severity, with behavioral disturbance; F32.9 Major depressive disorder, single episode, unspecified; R41.0 Disorientation, unspecified; K59.00 Constipation, unspecified; I10 Essential (primary) hypertension; E87.6 Hypokalemia; G47.00 Insomnia, unspecified; Z79.899 Other long term (current) drug therapy
CPT/HCPCS: 10880